=== PATIENT | female | born 1965 | race African-American/Black ===

== ENCOUNTER 2019-06-12 14:34 | Inpatient (IN) | payer SELFPAY ==
[2019-06-12] MEDS ORDERED: NA CHLORIDE 0.9% 1,000 ML ONE (15:57)
--- NOTE | 2019-06-12 16:03 | RAD REPORT ---
EXAM DESCRIPTION: RAD - Chest Single View - 06/12/2019 3:58 pm CLINICAL HISTORY: syncope Chest pain. COMPARISON: No comparisons FINDINGS: Portable technique limits examination quality. The lungs are grossly clear. The heart is normal in size. No displaced fractures. IMPRESSION: No acute intrathoracic process suspected.
--- NOTE | 2019-06-12 16:04 | RAD REPORT ---
EXAM DESCRIPTION: CR - Finger-Thumb Left - 06/12/2019 3:59 pm CLINICAL HISTORY: PAIN COMPARISON: No comparisons FINDINGS: No acute fracture identified
[2019-06-12 16:18] LABS: Basophils % 0.4 % (0-1.3); Hematocrit 39.4 % (36.0-45.0); Lymphocytes % 18.1 % (15.3-44.8); MPV 8.6 fL (7.6-11.3); Protime INR 1.04; RBC Red Blood Cell Count 4.55 M/uL (3.86-4.86)
[2019-06-12] MEDS ORDERED: METOCLOPRAMIDE 10 MG/2mL INJ ONE (16:22)
[2019-06-12] MEDS ORDERED: MORPHINE 2 MG/ML SYR ONE (16:23)
--- NOTE | 2019-06-12 16:30 | RAD REPORT ---
EXAM DESCRIPTION: CT - Head Brain Wo Cont - 06/12/2019 4:17 pm CLINICAL HISTORY: SYNCOPE Headache, syncope, head trauma COMPARISON: No comparisons TECHNIQUE: All CT scans are performed using dose optimization technique as appropriate and may inclu de automated exposure control or mA/KV adjustment according to patient size. FINDINGS: No intracranial hemorrhage, hydrocephalus or extra-axial fluid collection.No areas of brai n edema or evidence of midline shift. The paranasal sinuses and mastoids are clear. The calvarium is intact. IMPRESSION: No acute intracranial abnormality.
[2019-06-12 16:43] LABS: ALT/SGPT 13 U/L (12-78); AST/SGOT 14 U/L (15-37); Alkaline Phosphatase 112 U/L (45-117); BUN Blood Urea Nitrogen 13 mg/dL (7-18); Bicarbonate 29 mmol/L (21-32); Bilirubin Direct < 0.1 mg/dL (0-0.2); Bilirubin Total 0.4 mg/dL (0.2-1.0); Glucose Level 88 mg/dL (74-106); Magnesium 2.6 mg/dL (1.8-2.4); NT PRO-BNP 63 pg/mL (<125); Potassium 3.3 mmol/L (3.5-5.1); Protein, Total 8.8 g/dL (6.4-8.2); Sodium Level 143 mmol/L (136-145); Troponin (Emerg Dept Use Only) < 0.02 ng/mL (0.0-0.045)
[2019-06-12] MEDS ORDERED: POTASSIUM 25 MEQ EFFERV TAB ONE (17:01)
--- NOTE | 2019-06-12 17:19 | ER ---
Nurse's Notes [facility] Name: Gisselle Fuentes Age: 53 yrs Sex: Female : 1965 Arrival Date: 06/12/2019 Time: 14:42 Bed 17 Private MD: Diagnosis: Syncope and collapse Presentation: 06/11 14:43 Chief complaint: EMS states: called out for syncope, was pulling weeds and em [id number] found her on the floor, unknown downtime, woke up with a left sided headache, unknown if she hit her head, also reports left sided thumb pain, has hx of migraines. Coronavirus screen: The patient has NOT traveled to a country currently being monitored by the [facility] within the last 14 days. The patient has NOT had contact with any known and/or suspected case of coronavirus. Ebola Screen: Patient negative for fever greater than or equal to 101.5 degrees Fahrenheit, and additional compatible Ebola Virus Disease symptoms Patient denies exposure to infectious person. Patient denies travel to an Ebola-affected area in the 21 days before illness onset. No symptoms or risks identified at this time. Initial Sepsis Screen: Does the patient meet any 2 criteria? No. Patient's initial sepsis screen is negative. Does the patient have a suspected source of infection? No. Patient's initial sepsis screen is negative. Risk Assessment: Do you want to hurt yourself or someone else? Patient reports no desire to harm self or others. 14:43 Method Of Arrival: EMS: [facility] em 14:43 Acuity: EARNESTINE 3 em 19:20 Onset of symptoms was June 12, 2019. 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 - Social history:: Smoking status: Patient denies any tobacco usage or history of. Screenin:00 Abuse screen: Denies threats or abuse. Nutritional screening: No deficits noted. em Tuberculosis screening: No symptoms or risk factors identified. Fall Risk None identified. Assessment: 14:43 General: Appears in no apparent distress. 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 Pain: Complains of pain in left protestant Pain currently is 10 out of 10 on a pain scale. Pain began 30 min ago. Neuro: Level of Consciousness is awake, alert, obeys commands, Oriented to person, place, time, situation, Appropriate for age Reports headache a syncopal episode Denies blurred vision dizziness, numbness. Cardiovascular: Capillary refill < 3 seconds Rhythm is sinus rhythm. Respiratory: Airway is patent Respiratory effort is even, unlabored, Respiratory pattern is regular, symmetrical. GI: Patient currently denies nausea, vomiting. Derm: Skin is intact, is healthy with good turgor, Skin is pink, warm \T\ dry. Musculoskeletal: Capillary refill < 3 seconds, Range of motion: intact in all extremities, Reports pain in dorsal aspect of proximal phalanx of left thumb. 16:01 Reassessment: Patient appears in no apparent distress at this time. Patient and/or em family updated on plan of care and expected duration. Pain level reassessed. Patient is alert, oriented x 3, equal unlabored respirations, skin warm/dry/pink. 17:01 Reassessment: Patient appears in no apparent distress at this time. Patient and/or em family updated on plan of care and expected duration. Pain level reassessed. Patient is alert, oriented x 3, equal unlabored respirations, skin warm/dry/pink. rates pain 8/10 Patient states feeling better. Patient states symptoms have improved. 17:33 Reassessment: Patient appears in no apparent distress at this time. hospitalist at em bedside. 18:04 Reassessment: Patient appears in no apparent distress at this time. Patient and/or em family updated on plan of care and expected duration. Pain level reassessed. Patient is alert, oriented x 3, equal unlabored respirations, skin warm/dry/pink. pending room assignment. 19:10 Reassessment: Patient appears in no apparent distress at this time. Patient and/or wh family updated on plan of care and expected duration. Pain level reassessed. Patient is alert, oriented x 3, equal unlabored respirations, skin warm/dry/pink. 20:30 Reassessment: Patient appears in no apparent distress at this time. No changes from previously documented assessment. Patient and/or family updated on plan of care and expected duration. Pain level reassessed. Patient is alert, oriented x 3, equal unlabored respirations, skin warm/dry/pink. Vital Signs: 14:43 BP 132 / 83; Pulse 88; Resp 18; Temp 98.8(O); Pulse Ox 97% on R/A; Weight 72.57 kg; em Height 5 ft. 7 in. (170.18 cm); Pain 10/10; 15:55 BP 131 / 87 Supine; Pulse 83; em 15:55 BP 155 / 95 Sitting; Pulse 93; Resp 22; Pulse Ox 98% on R/A; Pain 10/10; em 17:00 BP 133 / 84; Pulse 79; Resp 18; Pulse Ox 99% on R/A; Pain 8/10; em 18:00 BP 132 / 86; Pulse 77; Resp 15; Pulse Ox 96% on R/A; em 20:00 BP 136 / 81; Pulse 69; Resp 18; Pulse Ox 97% on R/A; wh 14:43 Body Mass Index 25.06 (72.57 kg, 170.18 cm) em 15:55 unable to finish orthostatics, pt reports migraine, pt actively crying, provider em notified of pt status Hobbs Coma Score: 15:01 Eye Response: spontaneous(4). Verbal Response: oriented(5). Motor Response: obeys em commands(6). Total: 15. ED Course: 14:42 Patient arrived in ED. em 14:46 Triage completed. em 14:49 Arm band placed on. em 14:50 Waqar Gaxiola, RN is Primary Nurse. em 15:00 Patient has correct armband on for positive identification. Bed in low position. Call em light in reach. Adult w/ patient. Pulse ox on. NIBP on. 15:06 Roland Thorpe PA is PHCP. cp 15:06 Roland Corey MD is Attending Physician. cp 15:59 XRAY Chest (1 view) In Process Unspecified. EDMS 15:59 XRAY Finger-Thumb Left In Process Unspecified. EDMS 16:16 CT Head Brain wo Cont In Process Unspecified. EDMS 17:17 Case Damico is Hospitalizing Provider. cp 17:21 Velcro wrist splint applied to left wrist. em 20:30 No provider procedures requiring assistance completed. Patient admitted, IV remains in place. 06/12 05:22 Primary Nurse role handed off by Waqar Gaxiola RN ar5 07:05 Gigi Marvin, EM is Primary Nurse. jl7 Administered Medications: 06/11 16:00 Drug: NS 0.9% 1000 ml Route: IV; Rate: 1 bolus; Site: right antecubital; em 20:45 Follow up: Response: No adverse reaction; IV Status: Completed infusion 16:01 CANCELLED (Physician Discretion): Tylenol 1000 mg PO once cp 16:30 Drug: Reglan 10 mg Route: IVP; Site: right antecubital; em 17:02 Follow up: Response: No adverse reaction em 16:32 Drug: morphine 2 mg Route: IVP; Site: right antecubital; em 17:02 Follow up: Response: No adverse reaction; Marked relief of symptoms; Pain is decreased em 17:02 Drug: Potassium Effervescent Tablet 25 mEq Route: PO; em 17:31 Follow up: Response: No adverse reaction em Point of Care Testing: Blood Glucose: 14:49 Blood Glucose: 83 mg/dL; em Ranges: Outcome: 17:18 Decision to Hospitalize by Provider. cp 20:30 Admitted to ER Hold. Please see [facility] for further documentation. 20:30 Condition: stable 20:30 Instructed on the need for admit. 06/12 08:26 Patient left the ED. jl7 Signatures: Dispatcher [employer] EDMS Waqar Gaxiola, RN RN Roland Thorpe PA PA Gigi Marvin RN RN jl Raghu Correa Henny Brown
--- NOTE | 2019-06-12 17:19 | EDPHYS ---
Physician Documentation [facility] Name: Gisselle Fuentes Age: 53 yrs Sex: Female : 1965 Arrival Date: 06/12/2019 Time: 14:42 Bed 17 Private MD: ED Physician Roland Corey HPI: 06/11 15:29 This 53 yrs old Unknown Female presents to ER via EMS with complaints of Syncope. cp 15:29 The patient has experienced syncope, collapsed, lost consciousness. Onset: The cp symptoms/episode began/occurred today. Duration: This was a single episode, that lasted an unknown period of time. Context: the episode(s) was witnessed, by family, occurred outdoors, occurred while the patient was standing, talking. Just prior to the episode the patient experienced no apparent symptoms. Associated signs and symptoms: Pertinent negatives: abdominal pain, chest pain, confusion, numbness, palpitations, vomiting, weakness. Current symptoms: headache, a " 10" on a scale of "10". 15:30 Associated injury: Head/face: chin, tenderness, Left upper extremity: left thumb, pain, cp tenderness. 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 - Social history:: Smoking status: Patient denies any tobacco usage or history of. ROS: 15:35 Constitutional: Negative for body aches, chills, fever, poor PO intake. cp 15:35 Eyes: Negative for injury, pain, redness, and discharge. cp 15:35 Neck: Negative for pain with movement, pain at rest, stiffness, tenderness, bony tenderness. 15:35 Cardiovascular: Negative for chest pain, edema, palpitations. 15:35 Respiratory: Negative for cough, shortness of breath, wheezing. 15:35 Abdomen/GI: Negative for abdominal pain, nausea, vomiting, and diarrhea, constipation, black/tarry stool, rectal bleeding. 15:35 Back: Negative for pain at rest, pain with movement. 15:35 MS/extremity: Positive for pain, tenderness, of the chin and left thumb, Negative for deformity. 15:35 Neuro: Positive for headache, syncope, Negative for altered mental status, dizziness, speech changes, weakness. 15:35 All other systems are negative. Exam: 15:36 ECG was reviewed by the Attending Physician. cp 15:40 Constitutional: The patient appears in no acute distress, alert, awake, cp non-diaphoretic, non-toxic, well developed, well nourished. 15:40 Head/face: Noted is tenderness, that is mild, of the chin. cp 15:40 Eyes: Periorbital structures: appear normal, Pupils: equal, round, and reactive to light and accomodation, Extraocular movements: intact throughout, Conjunctiva: normal, no exudate, no injection, Sclera: no appreciated abnormality, Lids and lashes: appear normal, bilaterally. 15:40 ENT: External ear(s): are unremarkable, Ear canal(s): are normal, clear, TM's: dullness, bilaterally, Nose: is normal, Mouth: Lips: moist, Oral mucosa: pink and intact, moist, Posterior pharynx: is normal, airway is patent, no erythema, no exudate. 15:40 Neck: C-spine: vertebral tenderness, is not appreciated, crepitus, is not appreciated, ROM/movement: is normal, is supple, without pain, no range of motions limitations. 15:40 Chest/axilla: Inspection: normal, Palpation: is normal, no crepitus, no tenderness. 15:40 Cardiovascular: Rate: normal, Rhythm: regular, Heart sounds: murmur, not appreciated, Edema: is not appreciated, JVD: is not appreciated. 15:40 Respiratory: the patient does not display signs of respiratory distress, Respirations: normal, no use of accessory muscles, no retractions, labored breathing, is not present, Breath sounds: are clear throughout, no decreased breath sounds. 15:40 Abdomen/GI: Inspection: abdomen appears normal, Bowel sounds: active, all quadrants, Palpation: abdomen is soft and non-tender, in all quadrants, voluntary guarding, is not appreciated, involuntary guarding, is not appreciated. 15:40 Back: pain, is absent, ROM is normal. 15:40 Musculoskeletal/extremity: Extremities: grossly normal except: noted in the left thumb: pain, tenderness, ROM: limited active range of motion due to pain, in the left thumb, Perfusion: the extremity is normally perfused throughout, Sensation intact. 15:40 Neuro: Orientation: to person, place \\T\\ time. Mentation: is normal, Cerebellar function: Romberg testing is negative, normal finger to nose testing, heel to henry testing is normal, Motor: moves all fours, strength is normal, Sensation: no obvious gross deficits. Vital Signs: 14:43 BP 132 / 83; Pulse 88; Resp 18; Temp 98.8(O); Pulse Ox 97% on R/A; Weight 72.57 kg; em Height 5 ft. 7 in. (170.18 cm); Pain 10/10; 15:55 BP 131 / 87 Supine; Pulse 83; em 15:55 BP 155 / 95 Sitting; Pulse 93; Resp 22; Pulse Ox 98% on R/A; Pain 10/10; em 17:00 BP 133 / 84; Pulse 79; Resp 18; Pulse Ox 99% on R/A; Pain 8/10; em 18:00 BP 132 / 86; Pulse 77; Resp 15; Pulse Ox 96% on R/A; em 20:00 BP 136 / 81; Pulse 69; Resp 18; Pulse Ox 97% on R/A; wh 14:43 Body Mass Index 25.06 (72.57 kg, 170.18 cm) em 15:55 unable to finish orthostatics, pt reports migraine, pt actively crying, provider em notified of pt status Ely Coma Score: 15:01 Eye Response: spontaneous(4). Verbal Response: oriented(5). Motor Response: obeys em commands(6). Total: 15. MDM: 15:07 Patient medically screened. cp 15:45 Differential Diagnosis: cardiac arrhythmia, emotional response, GI bleed, pseudo cp seizure, seizure, transient ischemic attack, vasovagal episode. 17:00 Data reviewed: vital signs, nurses notes, lab test result(s), EKG, radiologic studies, cp CT scan, plain films, and as a result, I will admit patient. 17:00 Test interpretation: by ED physician or midlevel provider: ECG. Counseling: I had a cp detailed discussion with the patient and/or guardian regarding: the historical points, exam findings, and any diagnostic results supporting the discharge/admit diagnosis, lab results, radiology results, the need for further work-up and treatment in the hospital. Response to treatment: the patient's symptoms have markedly improved after treatment. 17:05 Physician consultation: Case Damico was called at 17:05, was contacted at 17:05, cp regarding admission, to the telemetry unit. patient's condition. 06/11 14:54 Order name: Glucose, Ancillary Testing; Complete Time: 16:34 EDMS 06/11 15:28 Order name: Basic Metabolic Panel; Complete Time: 16:49 cp 06/11 16:49 Interpretation: Normal except: K 3.3; CRE 1.59; GFR 34. cp 06/11 15:28 Order name: CBC with Diff; Complete Time: 16:34 cp 06/11 16:34 Interpretation: Normal except: ROLAND% 76.6; NEUT A 8.3. cp 06/11 15:28 Order name: LFT's; Complete Time: 16:49 cp 06/11 16:49 Interpretation: Normal except: AST 14; TP 8.8; GLOB 4.8; A/G 0.8. cp 06/11 15:28 Order name: Magnesium; Complete Time: 16:49 cp 06/11 16:50 Interpretation: Abnormal: MG 2.6. cp 06/11 15:28 Order name: NT PRO-BNP; Complete Time: 16:49 cp 06/11 15:28 Order name: PT-INR; Complete Time: 16:34 cp 06/11 15:28 Order name: Troponin (emerg Dept Use Only); Complete Time: 16:49 cp 06/11 16:14 Order name: Urine Dipstick--Ancillary (enter results); Complete Time: 20:22 ss 06/11 20:23 Interpretation: Normal except: UBLD TRACE. cp 06/11 21:19 Order name: Troponin I EDMS 06/11 21:19 Order name: Magnesium EDMS 06/12 02:04 Order name: Troponin I EDMS 06/12 05:43 Order name: Basic Metabolic Panel EDMS 06/12 05:43 Order name: Phosphorus EDMS 06/11 15:06 Order name: Orthostatics; Complete Time: 16:09 cp 06/11 15:07 Order name: EKG; Complete Time: 15:08 cp 06/11 15:07 Order name: EKG - Nurse/Tech; Complete Time: 16:09 cp 06/11 15:28 Order name: XRAY Chest (1 view); Complete Time: 16:34 cp 06/11 16:34 Interpretation: Report review. cp 06/11 15:28 Order name: Cardiac monitoring; Complete Time: 16:10 cp 06/11 15:28 Order name: IV Saline Lock; Complete Time: 16:10 cp 06/11 15:28 Order name: CT Head Brain wo Cont; Complete Time: 16:34 cp 06/11 16:34 Interpretation: Report reviewed. 06/11 15:31 Order name: XRAY Finger-Thumb Left; Complete Time: 16:34 cp 06/12 05:43 Order name: Lipid Profile EDPR 06/12 05:43 Order name: Thyroid Stimulating Hormone EDPR 06/12 08:07 Order name: Hemoglobin A1c EDPR 06/11 15:28 Order name: Labs collected and sent; Complete Time: 16:10 cp 06/11 15:28 Order name: O2 Per Protocol; Complete Time: 16:09 cp 06/11 15:28 Order name: O2 Sat Monitoring; Complete Time: 16:09 cp 06/11 15:29 Order name: Urine Dipstick-Ancillary (obtain specimen); Complete Time: 16:09 cp 06/11 16:52 Order name: Thumb Spica Splint: left; Complete Time: 17:27 cp EC:36 Rate is 73 beats/min. Rhythm is regular. AK interval is normal. QRS interval is normal. cp QT interval is normal. T waves are Flattened in lead aVL. Interpreted by me. Reviewed by me. Administered Medications: 16:00 Drug: NS 0.9% 1000 ml Route: IV; Rate: 1 bolus; Site: right antecubital; em 20:45 Follow up: Response: No adverse reaction; IV Status: Completed infusion wh 16:01 CANCELLED (Physician Discretion): Tylenol 1000 mg PO once cp 16:30 Drug: Reglan 10 mg Route: IVP; Site: right antecubital; em 17:02 Follow up: Response: No adverse reaction em 16:32 Drug: morphine 2 mg Route: IVP; Site: right antecubital; em 17:02 Follow up: Response: No adverse reaction; Marked relief of symptoms; Pain is decreased em 17:02 Drug: Potassium Effervescent Tablet 25 mEq Route: PO; em 17:31 Follow up: Response: No adverse reaction em Point of Care Testing: Blood Glucose: 14:49 Blood Glucose: 83 mg/dL; em Ranges: Critical Glucose Levels:Adult <50 mg/dl or >400 mg/dl <40 mg/dl or >180 mg/dl Disposition: 17:30 Chart complete. cp 06/12 16:24 Co-signature as Attending Physician, Roland Corey MD I agree with the assessment and jonathan plan of care. Disposition: 06/12/19 17:18 Hospitalization ordered by Case Damico for Observation. Preliminary diagnosis is Syncope and collapse. - Bed requested for Telemetry/MedSurg (observation). - Status is Observation. jl7 - Condition is Stable. - Problem is new. - Symptoms have improved. Signatures: Dispatcher [employer] EDIoana Abreu RN Roland Spangler MD MD cha Munoz, Edgar RN RN Roland Stokes PA PA cp Leal, Jahala, RN RN jl7 Habalo, Winsy Corrections: (The following items were deleted from the chart) 06/11 16:01 16:00 Tylenol 1000 mg PO once ordered. cp 16:08 15:29 Urine Test ordered. em 19:52 17:18 Hospitalization Ordered by Case Damico for Observation. Preliminary diagnosis mw is Syncope and collapse. Bed requested for Telemetry/MedSurg (observation). Status is Observation. Condition is Stable. Problem is new. Symptoms have improved. cp 06/12 05:54 06/11 19:52 06/12/2019 17:18 Hospitalization Ordered by Case Damico for Observation. Preliminary diagnosis is Syncope and collapse. Bed requested for [facility] ER HOLD. Status is Observation. Condition is Stable. Problem is new. Symptoms have improved. mw 06/12 08:26 05:54 06/12/2019 17:18 Hospitalization Ordered by Case Damico for Observation. jl7 Preliminary diagnosis is Syncope and collapse. Bed requested for Telemetry/MedSurg (observation). Status is Observation. Condition is Stable. Problem is new. Symptoms have improved. mw
--- NOTE | 2019-06-12 17:57 | P.HP ---
Certification for Inpatient Patient admitted to: Observation With expected LOS: <2 Midnights Practitioner: I am a practitioner with admitting privileges, knowledge of patient current condition, hospital course, and medical plan of care. Services: Services provided to patient in accordance with Admission requirements found in Title 42 Section 412.3 of the Code of Federal Regulations Patient History Date of Service: 06/12/19 Reason for admission: Syncope History of Present Illness: 53-year-old with no known past medical history was brought to the emergency department because she passed out and fell face forward. Patient states no seizures witnessed. She denied any warning signs or palpitation or dizziness or lightheadedness prior to passing out. She was doing yard work with her [id number] before the syncopal episode. She experienced pain in the left hand and her lower lip was swollen, had a small cut in her lower lip mucosa from the fall. Head CT is negative for acute disease. Blood work unremarkable except elevated creatinine. EKG shows sinus rhythm, no ST-T changes. Chest x-ray shows no acute disease. X-ray of the left hand shows no fracture. Initial troponin is negative. Her blood pressure has been normal in the ED. Patient is placed under observation for further syncope work up. Home medications list reviewed: Yes (No home medication) - Past Medical/Surgical History -: None - Family History Mother -: Diabetes, Seizures - Social History Smoking Status: Never smoker Alcohol use: No CD- Drugs: No Place of Residence: Home Review of Systems Other: Except as documented, all other systems reviewed and negative. Physical Examination - Physical Exam General: Alert, In no apparent distress, Oriented x3 HEENT: Mucous membr. moist/pink, Sclerae nonicteric Neck: Supple, 2+ carotid pulse no bruit, JVD not distended Respiratory: Clear to auscultation bilaterally, Normal air movement Cardiovascular: No edema, Normal pulses, Regular rate/rhythm, Normal S1 S2, No murmurs Capillary refill: <2 Seconds Gastrointestinal: Normal bowel sounds, Soft and benign, Non-distended, No tenderness Musculoskeletal: No swelling, No erythema Integumentary: No rashes, No erythema Neurological: Normal speech, Normal strength at 5/5 x4 extr, Cranial nerves 3- 12 intact - Studies Laboratory Data (last 24 hrs) 06/12/19 16:00: PT 12.3, INR 1.04 06/12/19 16:00: WBC 10.8, Hgb 12.9, Hct 39.4, Plt Count 319 06/12/19 16:00: Sodium 143, Potassium 3.3 L, BUN 13, Creatinine 1.59 H, Glucose 88, Magnesium 2.6 H, Total Bilirubin 0.4, AST 14 L, ALT 13, Alkaline Phosphatase 112 Assessment and Plan - Problems (Diagnosis) (1) Syncope and collapse Current Visit: Yes Status: Acute (2) Acute renal failure Current Visit: Yes Status: Acute (3) Hypokalemia Current Visit: Yes Status: Acute - Plan Place under observation Continue to trend troponin Syncope workup with echocardiogram. monitoring and evaluation advisor Check hemoglobin A1c, lipid profile. Given the significant history of seizure disorder in the family, I would recommend EEG to rule out seizures. Ativan IV p.r.n. will be available for seizures if it occurs. Pain management as needed for left thumb sprain. - Advance Directives Does patient have a Living Will: No Does patient have a Durable POA for Healthcare: No
[2019-06-12 20:01] LABS: Urine Blood TRACE (NEG); Urine Glucose NEGATIVE (NEG); Urine Protein TRACE (NEG); Urine Specific Gravity 1.025 (1.005-1.030); Urine pH 5.5 (5.0-7.0)
[2019-06-12 20:26] VITALS: BMI 25.0
[2019-06-12] MEDS ORDERED: NA CHLORIDE 0.9% 1,000 ML IV SCH (20:30)
[2019-06-12] MEDS ORDERED: ACETAMINOPHEN 500 MG TAB PO PRN (20:30)
[2019-06-12] MEDS ORDERED: LORazepam 2 MG/ML VIAL IV PRN (20:30)
[2019-06-12] MEDS ORDERED: ONDANSETRON 4 MG/2 ML VIAL IV PRN (20:30)
[2019-06-12 21:19] LABS: Magnesium 2.4 mg/dL (1.8-2.4); Troponin I < 0.02 ng/mL (0.0-0.045)
[2019-06-12] MEDS: Ringers Lactate 1,000 ML IV SCH (22:00)
--- NOTE | 2019-06-12 22:59 | EKG ---
Test Date: 2019-06-12 Test Time: 15:30:16 Supervisor [place]: ANA MEASUREMENT RESULTS: Intervals: Rate: 73 WV: 190 QRSD: 82 QT: 374 QTc: 412 [place]: P: 66 WV: 190 QRS: 33 T: 63 INTERPRETIVE STATEMENTS: Normal sinus rhythm Normal ECG No previous ECG available for comparison Electronically Signed On 06-12-19 22:58:33 CDT by Codey Davalos
[2019-06-13] MEDS ORDERED: Ringers Lactate 1,000 ML IV ONE (00:40)
[2019-06-13] MEDS: MORPHINE 2 MG/ML SYR IV PRN ×2 (04:45→20:57)
[2019-06-13] MEDS ORDERED: MORPHINE 2 MG/ML SYR ONE (04:47)
[2019-06-13 05:38] LABS: Phosphorus 4.3 mg/dL (2.5-4.9); Potassium 3.6 mmol/L (3.5-5.1); Thyroid Stimulating Hormone 0.422 uIU/mL (0.360-3.740)
[2019-06-13] MEDS ORDERED: POTASSIUM CL SA 10 MEQ TAB PO ONE (09:00)
[2019-06-13] MEDS: ENOXAPARIN 40 MG/0.4 ML SQ SCH (09:32)
[2019-06-13] MEDS: Ringers Lactate 1,000 ML IV SCH ×2 (09:33→18:00)
--- NOTE | 2019-06-13 15:49 | ECHO ---
HEIGHT: 5 ft 11 in WEIGHT: 216 lb 0 oz DATE OF STUDY: 06/13/[address]: kalyn arora 2-DIMENSIONAL: YES M.MODE: YES DOPPLER: YES COLOR FLOW: YES TDS: NO PORTABLE: NO DEFINITY: NO BUBBLE STUDY: NO DIAGNOSIS: SYNCOPE AND COLLAPSE CARDIAC HISTORY: CATHERIZATION: NO SURGERY: NO PROSTHETIC VALVE: NO PACEMAKER: NO MEASUREMENTS (cm) DIASTOLIC (NORMALS) SYSTOLIC (NORMALS) IVSd 1.0 (0.6-1.2) LA Diam 2.7 (1.9-4.0) LVEF 61% LVIDd 4.6 (3.5-5.7) LVIDs 3.1 (2.0-3.5) %FS 32% LVPWd 1.1 (0.6-1.2) Ao Diam 2.5 (2.0-3.7) 2 DIMENSIONAL ASSESSMENT: RIGHT ATRIUM: NORMAL LEFT ATRIUM: NORMAL RIGHT VENTRICLE: NORMAL LEFT VENTRICLE: NORMAL TRICUSPID VALVE: NORMAL MITRAL VALVE: NORMAL PULMONIC VALVE: NORMAL AORTIC VALVE: NORMAL PERICARDIAL EFFUSION: NONE AORTIC ROOT: NORMAL LEFT VENTRICULAR WALL MOTION: NORMAL DOPPLER/COLOR FLOW: NORMAL COMMENTS: NORMAL 2D ECHOCARDIOGRAM WITH DOPPLER. TECHNOLOGIST: Rashmi PAIZ
[2019-06-14] MEDS: Ringers Lactate 1,000 ML IV SCH ×3 (02:00→16:37)
[2019-06-14 06:47] LABS: Potassium 4.2 mmol/L (3.5-5.1)
[2019-06-14] MEDS: ENOXAPARIN 40 MG/0.4 ML SQ SCH (08:58)
[2019-06-14 10:59] VITALS: O2SAT 95
[2019-06-14] MEDS ORDERED: SUMATRIPTAN SUCCI 50 MG TAB PO PRN (14:08)
[2019-06-14 16:44] VITALS: BP 134/70; TEMP 97.5
--- NOTE | 2019-06-14 17:28 | RAD REPORT ---
EXAM DESCRIPTION: - CP - 06/14/2019 5:21 pm CLINICAL HISTORY: syncope Headache, drowsiness, CVA symptomology COMPARISON: No comparisons TECHNIQUE: Real-time sonographic evaluation of both carotid systems was performed. Doppler interroga tion was performed with waveform tracing bilaterally. FINDINGS: Normal high resistance waveforms are noted in both external carotid arteries. The common c arotid arteries and internal carotid arteries show normal low resistance waveforms. Small mixed plaque is noted left carotid bulb. Peak systolic and end diastolic velocity values and th e ICA/CCA ratios are in the non-hemodynamically significant range. Antegrade flow seen in both vertebral arteries. IMPRESSION: Small mixed plaque left carotid bulb. No evidence of a hemodynamically significant stenosis.
--- NOTE | 2019-06-14 20:01 | DS ---
Date of Discharge: 06/14/2019 Discharge Diagnoses: 1.Syncope and collapse. 2.Acute kidney injury. 3.Hypokalemia. 4.Obesity, body mass index 30. 5.Left thumb sprain from the fall. Hospital Course: Patient is a 53-year-old female, comes in with a witnessed fall. There were no sei zures. Patient had no warning to her syncopal episode. Patient came to shortly after. There was no postictal state. Seizure was very unlikely. Her workup was essentially normal. She did have sligh tly elevated creatinine and hypokalemia, which may be from dehydration as she was out and working in the garden in the heat. Patient's orthostatic vital signs were negative. Carotid artery ultrasound was also ordered. Overall, patient did well. She was able to ambulate, did not have any further syn copal episodes. There was no abnormality seen on her telemetry. Patient did not have a UTI. Her po tassium was replaced. Patient's etiology is likely cardiogenic, doubt any neurogenic causes. Her he ad CT scan was negative. Patient's thumb x-ray was also negative. She likely has a sprain. If she has continued pain, I would recommend an MRI and hand surgeon to evaluate the patient; however, for n ow, we will continue with conservative measures with rest, ice, and elevation. Patient was then doin g well. She was able to ambulate without difficulty. She will need to follow up with her primary ca re physician in 2-3 days and to follow up with Cardiology in 1-2 weeks for event monitor study to rul e out any sort of arrhythmias. Return to ER for worsening condition. Medications: As per medication reconciliation list. Diet: Regular, calorie-reduced diet. Patient was counseled regarding her obesity. Diet and exercis e regimen needs to be changed. Physical Examination: General: Awake, alert, oriented x3, not in any acute distress, obese female. CV: S1, S2. Regular rate and rhythm. Peripheral pulses present. Respiratory: Moving air well bilaterally. No wheezing or stridor. Gastrointestinal: Abdomen is soft, nontender, nondistended. Positive bowel sounds. Extremities: No clubbing, cyanosis, or edema. Neuro: Nonfocal. Total time spent discharging patient was 32 minutes. SA/MODL Voice ID: [id number] Report ID: [id number]
--- NOTE | 2019-06-26 07:55 | EEG ---
CHART: [id number] TEST ID#: [id number] DATE OF STUDY: 06/13/2019 THE EEG WAS RECORDED PORTABLE IN THE PATIENTS ROOM ON A 17 CHANNEL MACHINE. ELECTRODES WERE APPLIED IN THE USUAL MANNER USING THE INTERNATIONAL 10-20 SYSTEM. THE WAKING BACKGROUND RHYTHM IN THIS RECORD CONSISTS OF VERY WELL DEVELOPED AND WELL ORGANIZED WAVES OF 10.5 HZ., MAXIMAL IN THE POSTERIOR HEAD REGIONS WHICH ATTENUATE NORMALLY WITH EYE OPENING. LOW-VOLTAGE 18-22 HZ ACTIVITY IS EXPRESSED IN THE FRONTAL REGIONS. THERE ARE NO FOCAL OR LATERALIZING FEATURES. NO EPILEPTIFORM ACTIVITY APPEARS. SLEEP DID NOT OCCUR. HYPERVENTILATION WAS NOT PERFORMED. PHOTIC STIMULATION PRODUCED FAIR DRIVING BILATERALLY. IMPRESSION: NORMAL EEG FOR THE AGE OF THE PATIENT IN [place].
== END 2019-06-14 18:31 | disposition home or self-care (01) | DRG 312 ==
LOC: EDBD 14:34 → ER 14:34 → ERHOLD 18:03 → 2ND 06-13 08:18 → OBSVTOIN 06-13 14:46
PROVIDERS: ADMIT Internal Medicine; ATTEND Internal Medicine
DX: R55 Syncope and collapse (principal); N17.9 Acute kidney failure, unspecified; E87.6 Hypokalemia; E66.9 Obesity, unspecified; Z68.30 Body mass index [BMI] 30.0-30.9, adult; S63.602A Unspecified sprain of left thumb, initial encounter; W18.30XA Fall on same level, unspecified, initial encounter; Y92.009 Unspecified place in unspecified non-institutional (private) residence as the place of occurrence of the external cause
CPT/HCPCS: 36415; 70450; 71045; 80048; 80061; 80076; 81003; 82947; 83036; 83735; 83880; 84100; 84443; 84484; 85025; 85610; 93005; 93306; 93880; 94760; 95816; 96361; 96374; 96375; 99285; G0378; J1650; J2270; J2765; J7030; J7120

== ENCOUNTER 2019-06-18 17:36 | Emergency (ER) | payer SELFPAY ==
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
--- OUTSIDE RECORDS SUMMARY | 2019-06-18 17:38 | XMS REPORT ---
:1965 [facility] Address [address] [place] [address] Dr. Peoples. [address] [place] [id number] Care Team Providers Name Role Phone Unavailable Unavailable Unavailable Problems This patient has no known problems. Allergies, Adverse Reactions, Alerts This patient has no known allergies or adverse reactions. Medications This patient has no known medications.
--- NOTE | 2019-06-18 19:28 | RAD REPORT ---
EXAM DESCRIPTION: CT - Head Brain Wo Cont - 06/18/2019 7:15 pm CLINICAL HISTORY: HEADACHE COMPARISON: Head Brain Wo Cont dated 06/12/2019 TECHNIQUE: Axial 5 mm thick images of the head were obtained without IV contrast. All CT scans are performed using dose optimization technique as appropriate and may include automated exposure control or mA/KV adjustment according to patient size. FINDINGS: No intracranial hemorrhage, mass, edema or shift of mid-line structures. No acute infarcti on changes seen. No abnormal extra-axial fluid collections. Ventricles are normal. Mastoid air cells and visualized portions of the paranasal sinuses are clear. No acute bony findings. No changes seen from prior imaging. IMPRESSION: Negative non-contrast CT head examination.
[2019-06-18] MEDS ORDERED: ONDANSETRON 4 MG/2 ML VIAL ONE (19:32)
[2019-06-18] MEDS ORDERED: METOCLOPRAMIDE 10 MG/2mL INJ ONE (19:32)
[2019-06-18] MEDS ORDERED: NA CHLORIDE 0.9% 1,000 ML ONE (19:32)
[2019-06-18] MEDS ORDERED: KETOROLAC 30 MG/ML INJ ONE (19:32)
[2019-06-18 20:48] LABS: Urine Blood NEGATIVE (NEG); Urine Glucose NEGATIVE (NEG); Urine Protein NEGATIVE (NEG); Urine Specific Gravity 1.025 (1.005-1.030)
--- NOTE | 2019-06-18 21:07 | ER ---
Nurse's Notes [facility] Name: Gisselle Fuentes Age: 53 yrs Sex: Female : 1965 Arrival Date: 06/18/2019 Time: 17:41 Bed 23 Private MD: Diagnosis: Migraine without aura Presentation: 06/17 17:51 Chief complaint: Patient states: Headache x 5 days. Nausea started today. Was here ca1 Tuesday and admitted for syncope. I have been having this headache since I was discharged. Denies cough, congestion and fever. Coronavirus screen: Patient denies fever greater than 100.4F, cough, shortness of breath, or difficulty breathing. Proceed with normal triage process. Ebola Screen: Patient negative for fever greater than or equal to 101.5 degrees Fahrenheit, and additional compatible Ebola Virus Disease symptoms Patient denies exposure to infectious person. Patient denies travel to an Ebola-affected area in the 21 days before illness onset. No symptoms or risks identified at this time. Initial Sepsis Screen: Does the patient meet any 2 criteria? No. Patient's initial sepsis screen is negative. Does the patient have a suspected source of infection? No. Patient's initial sepsis screen is negative. Risk Assessment: Do you want to hurt yourself or someone else? Patient reports no desire to harm self or others. 17:51 Method Of Arrival: Ambulatory ca1 17:51 Acuity: EARNESTINE 3 [facility] 19:00 Onset of symptoms was June 18, 2019. 19:00 Onset of symptoms was June 18, 2019. Triage Assessment: 19:00 Headache History: The patient has had previous headaches and this one is similar to previous episodes. General: Appears in no apparent distress. Behavior is calm, cooperative, appropriate for age. Pain: Pain currently is 9 out of 10 on a pain scale. Pain began suddenly, Also complains of no other associated symptoms. 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 - Social history:: Smoking status: Patient denies any tobacco usage or history of. Patient/guardian denies using alcohol, street drugs, The patient lives with family. - Family history:: not pertinent. Screenin:00 Abuse screen: Denies threats or abuse. Denies injuries from another. Nutritional wh screening: No deficits noted. Tuberculosis screening: No symptoms or risk factors identified. Fall Risk None identified. Assessment: 19:00 General: Appears in no apparent distress. Behavior is calm, cooperative, appropriate wh for age. General: Appears uncomfortable. Pain: Complains of pain in headache Pain does not radiate. Pain currently is 9 out of 10 on a pain scale. Quality of pain is described as throbbing. Neuro: Level of Consciousness is awake, alert, obeys commands, Oriented to person, place, time, situation, Appropriate for age Striper Machine are equal bilaterally Moves all extremities. Gait is steady, Speech is normal, Facial symmetry appears normal, Pupils are PERRLA, Intact Reports headache in entire. Cardiovascular: Heart tones S1 S2. Respiratory: Airway is patent Respiratory effort is even, unlabored, Respiratory pattern is regular, symmetrical, Breath sounds are clear bilaterally. GI: Abdomen is flat, non-distended. : No signs and/or symptoms were reported regarding the genitourinary system. EENT: No signs and/or symptoms were reported regarding the EENT system. Derm: Skin is intact, is healthy with good turgor, Skin is pink, warm \T\ dry. normal. Musculoskeletal: Circulation, motion, and sensation intact. 20:24 Reassessment: Patient appears in no apparent distress at this time. No changes from previously documented assessment. Patient and/or family updated on plan of care and expected duration. Pain level reassessed. Patient is alert, oriented x 3, equal unlabored respirations, skin warm/dry/pink. 21:40 Reassessment: Patient appears in no apparent distress at this time. No changes from previously documented assessment. Patient and/or family updated on plan of care and expected duration. Pain level reassessed. Patient is alert, oriented x 3, equal unlabored respirations, skin warm/dry/pink. Patient states feeling better. Patient states symptoms have improved. Vital Signs: 17:51 BP 128 / 79; Pulse 82; Resp 17 S; Temp 98.9(O); Pulse Ox 99% on R/A; Weight 72.57 kg ca1 (R); Height 5 ft. 7 in. (170.18 cm) (R); 20:00 BP 110 / 84; Pulse 74; Resp 18; Pulse Ox 99% on R/A; wh 21:29 BP 120 / 76; Pulse 79; Resp 18; Pulse Ox 99% ; Pain 1/10; ll1 17:51 Body Mass Index 25.06 (72.57 kg, 170.18 cm) ca1 Wade Coma Score: 20:12 Eye Response: spontaneous(4). Verbal Response: oriented(5). Motor Response: obeys ma2 commands(6). Total: 15. ED Course: 17:41 Patient arrived in ED. mr 17:54 Triage completed. ca1 17:54 Arm band placed on right wrist. ca1 18:34 Darek Garcia MD is Attending Physician. ma2 18:47 Raghu Correa is Primary Nurse. 19:00 Patient has correct armband on for positive identification. Bed in low position. Call light in reach. Side rails up X 1. Pulse ox on. NIBP on. 19:05 Inserted saline lock: 20 gauge in right antecubital area, using aseptic technique. 20:48 Urine Dipstick--Ancillary (enter results) Sent. ll1 21:34 IV discontinued, intact, bleeding controlled, No redness/swelling at site. Pressure ll1 dressing applied. 21:40 No provider procedures requiring assistance completed. Administered Medications: 19:28 Drug: TORadol 30 mg Route: IVP; Site: right antecubital; 20:18 Follow up: Response: No adverse reaction; Pain is decreased 19:30 Drug: NS 0.9% 1000 ml Route: IV; Rate: 1 bolus; Site: right antecubital; 20:18 Follow up: Response: No adverse reaction; IV Status: Completed infusion 21:28 Follow up: Response: No adverse reaction; RASS: Alert and Calm (0); IV Status: ll1 Completed infusion; IV Intake: 1000ml 19:30 Drug: Zofran (Ondansetron) 4 mg Route: IVP; Site: right antecubital; 20:18 Follow up: Response: No adverse reaction; Nausea is decreased 19:32 Drug: Reglan 10 mg Route: IVP; Site: right antecubital; 20:19 Follow up: Response: No adverse reaction Intake: 21:28 IV: 1000ml; Total: 1000ml. ll1 Outcome: 21:06 Discharge ordered by . eliezer 21:40 Discharged to home ambulatory. 21:40 Condition: stable 21:40 Discharge instructions given to patient, Instructed on discharge instructions, follow up and referral plans. medication usage, POC Demonstrated understanding of instructions, follow-up care, medications, POC Prescriptions given X 21:44 Patient left the ED. Signatures: Jennifer Truong mr Sunny, Raghu Darek Garcia MD MD ma2 Brigid Fox RN RN ca1 Arvin Sigala RN RN ll1
--- NOTE | 2019-06-18 21:08 | EDPHYS ---
Physician Documentation [facility] Name: Gisselle Fuentes Age: 53 yrs Sex: Female : 1965 Arrival Date: 06/18/2019 Time: 17:41 Bed 23 Private MD: ED Physician Darek Garcia HPI: 06/17 20:12 This 53 yrs old Black Female presents to ER via Ambulatory with complaints of Headache. ma2 20:12 The patient complains of pain to the forehead. Onset: The symptoms/episode ma2 began/occurred gradually, 1 day(s) ago. Severity of symptoms: At its worst the pain was moderate, in the emergency department the pain has improved. The patient has experienced similar episodes in the past. 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 - Social history:: Smoking status: Patient denies any tobacco usage or history of. Patient/guardian denies using alcohol, street drugs, The patient lives with family. - Family history:: not pertinent. ROS: 20:12 Constitutional: Negative for fever, chills, and weight loss. ma2 20:12 All other systems are negative. Exam: 20:12 Constitutional: This is a well developed, well nourished patient who is awake, alert, ma2 and in no acute distress. ENT: Nares patent. No nasal discharge, no septal abnormalities noted. Tympanic membranes are normal and external auditory canals are clear. Oropharynx with no redness, swelling, or masses, exudates, or evidence of obstruction, uvula midline. Mucous membranes moist. Neck: Trachea midline, no thyromegaly or masses palpated, and no cervical lymphadenopathy. Supple, full range of motion without nuchal rigidity, or vertebral point tenderness. No Meningismus. Chest/axilla: Normal chest wall appearance and motion. Nontender with no deformity. No lesions are appreciated. Cardiovascular: Regular rate and rhythm with a normal S1 and S2. No gallops, murmurs, or rubs. Normal PMI, no JVD. No pulse deficits. Respiratory: Lungs have equal breath sounds bilaterally, clear to auscultation and percussion. No rales, rhonchi or wheezes noted. No increased work of breathing, no retractions or nasal flaring. Abdomen/GI: Soft, non-tender, with normal bowel sounds. No distension or tympany. No guarding or rebound. No evidence of tenderness throughout. MS/ Extremity: Pulses equal, no cyanosis. Neurovascular intact. Full, normal range of motion. Neuro: Awake and alert, GCS 15, oriented to person, place, time, and situation. Cranial nerves II-XII grossly intact. Motor strength 5/5 in all extremities. Sensory grossly intact. Cerebellar exam normal. Normal gait. Vital Signs: 17:51 BP 128 / 79; Pulse 82; Resp 17 S; Temp 98.9(O); Pulse Ox 99% on R/A; Weight 72.57 kg ca1 (R); Height 5 ft. 7 in. (170.18 cm) (R); 20:00 BP 110 / 84; Pulse 74; Resp 18; Pulse Ox 99% on R/A; wh 21:29 BP 120 / 76; Pulse 79; Resp 18; Pulse Ox 99% ; Pain 1/10; ll1 17:51 Body Mass Index 25.06 (72.57 kg, 170.18 cm) ca1 Wade Coma Score: 20:12 Eye Response: spontaneous(4). Verbal Response: oriented(5). Motor Response: obeys ma2 commands(6). Total: 15. MDM: 18:34 Patient medically screened. ma2 20:12 Differential diagnosis: otitis, sinusitis, trigeminal neuralgia, uremia, vasomotor ma2 headache. Data reviewed: vital signs, nurses notes, lab test result(s). Counseling: I had a detailed discussion with the patient and/or guardian regarding: the historical points, exam findings, and any diagnostic results supporting the discharge/admit diagnosis, the presence of at least one elevated blood pressure reading (>120/80) during this emergency department visit, the need for outpatient follow up. Response to treatment: the patient's symptoms have markedly improved after treatment. 06/17 20:20 Order name: Urine Dipstick--Ancillary (enter results) ar5 06/17 20:49 Order name: Urine Dipstick-Ancillary; Complete Time: 20:53 EDMT 06/17 18:50 Order name: CT Head Brain wo Cont ma2 06/17 18:50 Order name: Urine Dipstick-Ancillary (obtain specimen); Complete Time: 20:18 ma2 Administered Medications: 19:28 Drug: TORadol 30 mg Route: IVP; Site: right antecubital; 20:18 Follow up: Response: No adverse reaction; Pain is decreased 19:30 Drug: NS 0.9% 1000 ml Route: IV; Rate: 1 bolus; Site: right antecubital; 20:18 Follow up: Response: No adverse reaction; IV Status: Completed infusion 21:28 Follow up: Response: No adverse reaction; RASS: Alert and Calm (0); IV Status: ll1 Completed infusion; IV Intake: 1000ml 19:30 Drug: Zofran (Ondansetron) 4 mg Route: IVP; Site: right antecubital; 20:18 Follow up: Response: No adverse reaction; Nausea is decreased 19:32 Drug: Reglan 10 mg Route: IVP; Site: right antecubital; 20:19 Follow up: Response: No adverse reaction Disposition: 06/18/19 21:06 Discharged to Home. Impression: Migraine without aura. - Condition is Stable. - Discharge Instructions: Migraine Headache. - Prescriptions for Reglan 10 mg Oral Tablet - take 1 tablet by ORAL route every 6 hours take 30 minutes before meals and at bedtime; 20 tablet. - Medication Reconciliation Form, Thank You Letter, Antibiotic Education, Prescription Opioid Use form. - Follow up: Private Physician; When: Tomorrow; Reason: Continuance of care. Signatures: Dispatcher [employer] EDMT Raghu Correa Darek Garcia MD MD ma2 Brigid Fox RN RN Arvin Knox RN ll1 Corrections: (The following items were deleted from the chart) 21:44 21:06 06/18/2019 21:06 Discharged to Home. Impression: Migraine without aura. Condition wh is Stable. Discharge Instructions: Migraine Headache. Prescriptions for Reglan 10 mg Oral Tablet - take 1 tablet by ORAL route every 6 hours take 30 minutes before meals and at bedtime; 20 tablet. and Forms are Medication Reconciliation Form, Thank You Letter, Antibiotic Education, Prescription Opioid Use. Follow up: Private Physician; When: Tomorrow; Reason: Continuance of care. ma2
[2019-06-18 21:50] VITALS: TEMP 98.9; O2SAT 99
[2019-06-18 21:51] VITALS: BP 120/76
== END 2019-06-18 21:44 | disposition home or self-care (01) ==
LOC: ER 17:36
DX: G43.009 Migraine without aura, not intractable, without status migrainosus (principal); Z88.5 Allergy status to narcotic agent; Z88.8 Allergy status to other drugs, medicaments and biological substances; Z91.018 Allergy to other foods
CPT/HCPCS: 70450; 81003; 96361; 96374; 96375; 99284; J2405; J2765; J7030

== ENCOUNTER 2019-10-13 05:03 | Emergency (ER) | payer SELFPAY ==
--- OUTSIDE RECORDS SUMMARY | 2019-10-13 05:04 | XMS REPORT | Continuity of Care Document ---
:1965 Author Organization [facility] t Address 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 Allergies, Adverse Reactions, Alerts This patient has no known allergies or adverse reactions. Medications This patient has no known medications. Procedures This patient has no known procedures. Encounters Start End Encounter Admission Attending Care Care Encounter Source Date/Time Date/Time Type Type Clinicians Facility Department ID 2019-04-12 2019-04-12 Emergency Allison [facility] [id number] 15:32:56 17:51:00 Rick Luis [id number] [place] [id number] [place] [id number] Results This patient has no known results.
[2019-10-13] MEDS ORDERED: METOCLOPRAMIDE 10 MG/2mL INJ ONE (06:24)
[2019-10-13] MEDS ORDERED: NA CHLORIDE 0.9% 1,000 ML ONE (06:25)
[2019-10-13] MEDS ORDERED: KETOROLAC 30 MG/ML INJ ONE (06:25)
--- NOTE | 2019-10-13 07:00 | EDPHYS ---
Physician Documentation [facility] Name: Gisselle Fuentes Age: 54 yrs Sex: Female : 1965 Arrival Date: 10/13/2019 Time: 05:06 Bed 6 Private MD: ED Physician Micheal Gordon HPI: 10/12 06:13 This 54 yrs old Black Female presents to ER via Ambulatory with complaints of Headache. kb 06:13 The patient complains of pain to the forehead. The patient describes the headache as kb constant. Onset: The symptoms/episode began/occurred last night. Associated signs and symptoms: Pertinent positives: nausea, Pertinent negatives: altered mental status, dizziness, fever, malaise, neck stiffness, paresthesias, Photophobia rash, sinus congestion, sinus tenderness, vision changes, vision loss, vomiting, weakness, vertigo. Severity of symptoms: At its worst the pain was moderate, in the emergency department the pain is unchanged. Headache History: The patient has had previous headaches and this one is similar to previous episodes. The symptoms are alleviated by nothing. the symptoms are aggravated by nothing. The patient has experienced similar episodes in the past, chronically. The patient has not recently seen a physician. Pt reports migraine that started at 2200 last night. Reports nausea. States she has had several migraines like this in the past and is out of her sumatriptan that she normally takes when she has one. Did not take any medication for pain prior to arrival. . 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 - Social history:: Smoking status: unknown. ROS: 06:12 Constitutional: Negative for fever, chills, and weight loss, Cardiovascular: Negative kb for chest pain, palpitations, and edema, Respiratory: Negative for shortness of breath, cough, wheezing, and pleuritic chest pain, Back: Negative for injury and pain, MS/Extremity: Negative for injury and deformity, Skin: Negative for injury, rash, and discoloration. 06:12 Abdomen/GI: Positive for nausea, Negative for abdominal pain, vomiting, diarrhea. 06:12 Neuro: Positive for headache. Exam: 06:12 Constitutional: This is a well developed, well nourished patient who is awake, alert, kb and in no acute distress. Head/Face: Normocephalic, atraumatic. Eyes: Pupils equal round and reactive to light, extra-ocular motions intact. Lids and lashes normal. Conjunctiva and sclera are non-icteric and not injected. Cornea within normal limits. Periorbital areas with no swelling, redness, or edema. Chest/axilla: Normal chest wall appearance and motion. Nontender with no deformity. No lesions are appreciated. Cardiovascular: Regular rate and rhythm with a normal S1 and S2. No gallops, murmurs, or rubs. Normal PMI, no JVD. No pulse deficits. Respiratory: Lungs have equal breath sounds bilaterally, clear to auscultation and percussion. No rales, rhonchi or wheezes noted. No increased work of breathing, no retractions or nasal flaring. Abdomen/GI: Soft, non-tender, with normal bowel sounds. No distension or tympany. No guarding or rebound. No evidence of tenderness throughout. Skin: Warm, dry with normal turgor. Normal color with no rashes, no lesions, and no evidence of cellulitis. MS/ Extremity: Pulses equal, no cyanosis. Neurovascular intact. Full, normal range of motion. Neuro: Awake and alert, GCS 15, oriented to person, place, time, and situation. Cranial nerves II-XII grossly intact. Motor strength 5/5 in all extremities. Sensory grossly intact. Cerebellar exam normal. Normal gait. Vital Signs: 05:32 BP 175 / 98; Pulse 78; Resp 18; Temp 98.4; Pulse Ox 99% ; ea 07:06 BP 161 / 90; Pulse 67; Resp 18; Pulse Ox 100% on R/A; wh Wade Coma Score: 06:13 Eye Response: spontaneous(4). Verbal Response: oriented(5). Motor Response: obeys kb commands(6). Total: 15. MDM: 05:57 Patient medically screened. kb 06:13 Data reviewed: vital signs, nurses notes. Data interpreted: Pulse oximetry: on room air kb is 99 %. Interpretation: normal. 06:59 Counseling: I had a detailed discussion with the patient and/or guardian regarding: the kb historical points, exam findings, and any diagnostic results supporting the discharge/admit diagnosis, the need for outpatient follow up, a family practitioner, to return to the emergency department if symptoms worsen or persist or if there are any questions or concerns that arise at home. ED course: Pt reports the medication helped, she is feeling better and is ready to go home. . 10/12 06:02 Order name: IV Start; Complete Time: 06:15 kb Administered Medications: 06:00 Drug: TORadol 30 mg Route: IVP; Site: right antecubital; ea 06:50 Follow up: Response: No adverse reaction ea 06:21 Drug: Reglan 10 mg Route: IVP; Site: right antecubital; ea 06:50 Follow up: Response: No adverse reaction ea 06:22 Drug: NS 0.9% 1000 ml Route: IV; Rate: 1000 ml; Site: right antecubital; ea 06:50 Follow up: Response: No adverse reaction; IV Status: Completed infusion; IV Intake: ea 1000ml Disposition: 07:17 Co-signature as Attending Physician, Micheal Gordon MD. [place] Disposition: 10/13/19 07:00 Discharged to Home. Impression: Migraine. - Condition is Stable. - Discharge Instructions: Migraine Headache, [id number]. - Medication Reconciliation Form, Thank You Letter, Antibiotic Education, Prescription Opioid Use form. - Follow up: Emergency Department; When: As needed; Reason: Worsening of condition. Follow up: Private Physician; When: 2 - 3 days; Reason: Recheck today's complaints, Continuance of care, Re-evaluation by your physician. Signatures: Ashley Ware FNP-C FNP-Jovanni Paulino RN Micheal Rush MD MD pkl Antunez, Elena, RN RN ea Corrections: (The following items were deleted from the chart) 07:07 07:00 10/13/2019 07:00 Discharged to Home. Impression: Migraine. Condition is Stable. ea Forms are Medication Reconciliation Form, Thank You Letter, Antibiotic Education, Prescription Opioid Use. Follow up: Emergency Department; When: As needed; Reason: Worsening of condition. Follow up: Private Physician; When: 2 - 3 days; Reason: Recheck today's complaints, Continuance of care, Re-evaluation by your physician. kb
--- NOTE | 2019-10-13 07:00 | ER ---
Nurse's Notes [facility] [place] Name: Gisselle Fuentes Age: 54 yrs Sex: Female : 1965 Arrival Date: 10/13/2019 Time: 05:06 Bed 6 Private MD: Diagnosis: Migraine Presentation: 10/12 05:07 Note pt remains in lobby in stable condition, awaiting a bed at this time. sg 05:07 Onset of symptoms was October 13, 2019. Care prior to arrival: None. sg 05:07 Acuity: EARNESTINE 3 sg 05:07 Chief complaint: Patient states: I have migraines, and i have medicine for them but I sg ran out, this headache has been hurting me bad, started around 10 pm last night just been getting worse. 05:34 Coronavirus screen: Proceed with normal triage. Ebola Screen: No symptoms or risks ea identified at this time. Risk Assessment: Do you want to hurt yourself or someone else? Patient reports no desire to harm self or others. 05:34 Initial Sepsis Screen: Does the patient meet any 2 criteria? No. Patient's initial ea sepsis screen is negative. Does the patient have a suspected source of infection? No. Patient's initial sepsis screen is negative. 05:34 Method Of Arrival: Ambulatory ea 05:35 Chief complaint: Patient states: Hx of Migraine headache run out of medicine. Started wh having migraine headache at 22:00 last night. Triage Assessment: 05:07 Headache History: The patient has had previous headaches and this one is similar to sg previous episodes, and this one is more severe than previous episodes. General: Appears in no apparent distress. well groomed, well developed, well nourished, Behavior is calm, cooperative, appropriate for age. Neuro: Level of Consciousness is awake, alert, obeys commands, Oriented to person, place, time, situation, Speech is normal, Facial symmetry appears normal. 05:15 Pain: Pain began suddenly, Also complains of no other associated symptoms. 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 - Social history:: Smoking status: unknown. Screenin:34 Abuse screen: Denies threats or abuse. Nutritional screening: No deficits noted. ea Tuberculosis screening: No symptoms or risk factors identified. Fall Risk None identified. Assessment: 05:36 General: Appears in no apparent distress. Behavior is calm, cooperative, appropriate wh for age. Pain: Complains of pain in migraine headache Pain does not radiate. Pain currently is 9 out of 10 on a pain scale. Neuro: Level of Consciousness is awake, alert, obeys commands, Oriented to person, place, time, situation, Appropriate for age Reports headache in entire. Cardiovascular: Heart tones S1 S2. Respiratory: Airway is patent Respiratory effort is even, unlabored, Respiratory pattern is regular, symmetrical, Breath sounds are clear bilaterally. GI: Abdomen is flat, non-distended. : No signs and/or symptoms were reported regarding the genitourinary system. EENT: No signs and/or symptoms were reported regarding the EENT system. Derm: Skin is intact, is healthy with good turgor, Skin is pink, warm \T\ dry. normal. Musculoskeletal: Circulation, motion, and sensation intact. 06:55 Reassessment: Patient and/or family updated on plan of care and expected duration. Pain ea level reassessed. Patient is alert, oriented x 3, equal unlabored respirations, skin warm/dry/pink. Discharge instruction given to patient verbalized the understanding of instruction. Pt left ED ambulatory tolerating well. Vital Signs: 05:32 BP 175 / 98; Pulse 78; Resp 18; Temp 98.4; Pulse Ox 99% ; ea 07:06 BP 161 / 90; Pulse 67; Resp 18; Pulse Ox 100% on R/A; wh Wade Coma Score: 06:13 Eye Response: spontaneous(4). Verbal Response: oriented(5). Motor Response: obeys kb commands(6). Total: 15. ED Course: 05:06 Patient arrived in ED. ag3 05:07 Arm band placed on. sg 05:13 Triage completed. sg 05:27 Raghu Correa is Primary Nurse. 05:34 Patient has correct armband on for positive identification. Bed in low position. Call ea light in reach. 05:50 Inserted saline lock: 22 gauge in right antecubital area, using aseptic technique. wh Blood collected. 05:57 Ashley Ware FNP-C is [facility]. kb 05:57 Micheal Gordon MD is Attending Physician. kb 06:50 IV discontinued, intact, bleeding controlled, No redness/swelling at site. Pressure ea dressing applied. 07:06 No provider procedures requiring assistance completed. ea Administered Medications: 06:00 Drug: TORadol 30 mg Route: IVP; Site: right antecubital; ea 06:50 Follow up: Response: No adverse reaction ea 06:21 Drug: Reglan 10 mg Route: IVP; Site: right antecubital; ea 06:50 Follow up: Response: No adverse reaction ea 06:22 Drug: NS 0.9% 1000 ml Route: IV; Rate: 1000 ml; Site: right antecubital; ea 06:50 Follow up: Response: No adverse reaction; IV Status: Completed infusion; IV Intake: ea 1000ml Intake: 06:50 IV: 1000ml; Total: 1000ml. ea Outcome: 07:00 Discharge ordered by . kb 07:06 Discharged to home ambulatory, with family. ea 07:06 Condition: stable 07:06 Discharge instructions given to patient, Instructed on discharge instructions, follow up and referral plans. Demonstrated understanding of instructions, follow-up care. 07:07 Patient left the ED. ea Signatures: Ashley Ware FNP-C FNP-Jovanni Paulino RN Laure Kaufman RN Raghu Chavez ea, Alice ag3
[2019-10-13 07:46] VITALS: TEMP 98.4
[2019-10-13 07:47] VITALS: BP 161/90; O2SAT 100
== END 2019-10-13 07:07 | disposition home or self-care (01) ==
LOC: ER 05:03
DX: G43.909 Migraine, unspecified, not intractable, without status migrainosus (principal); Z88.5 Allergy status to narcotic agent; Z88.8 Allergy status to other drugs, medicaments and biological substances; Z91.018 Allergy to other foods
CPT/HCPCS: 96374; 96375; 99283; J2765; J7030

== ENCOUNTER 2019-11-12 23:28 | Emergency (ER) | payer SELFPAY ==
--- OUTSIDE RECORDS SUMMARY | 2019-11-12 23:30 | XMS REPORT | Continuity of Care Document ---
:1965 Author Organization [facility] t Address 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 Allergies, Adverse Reactions, Alerts This patient has no known allergies or adverse reactions. Medications This patient has no known medications. Procedures This patient has no known procedures. Encounters Start End Encounter Admission Attending Care Care Encounter Source Date/Time Date/Time Type Type Clinicians Facility Department ID 2019-04-12 2019-04-[address] [facility] [id number] 15:32:56 17:51:00 Rick Luis [id number] [place] [id number] [place] [id number] Results This patient has no known results.
[2019-11-12 23:52] LABS: Absolute Lymphocytes (CBC) 3.3 K/uL (0.7-4.9); Basophils % 1.1 % (0-1.3); Hematocrit 36.3 % (36.0-45.0); Lymphocytes % 34.3 % (15.3-44.8); MPV 8.7 fL (7.6-11.3); RBC Red Blood Cell Count 4.24 M/uL (3.86-4.86)
[2019-11-12 23:53] LABS: Protime INR 1.03
[2019-11-13 00:07] LABS: ALT/SGPT 18 U/L (12-78); AST/SGOT 11 U/L (15-37); Albumin 3.5 g/dL (3.4-5.0); Alkaline Phosphatase 90 U/L (45-117); BUN Blood Urea Nitrogen 20 mg/dL (7-18); Bicarbonate 28 mmol/L (21-32); Bilirubin Direct < 0.1 mg/dL (0-0.2); Bilirubin Total 0.2 mg/dL (0.2-1.0); Glucose Level 97 mg/dL (74-106); Magnesium 2.4 mg/dL (1.8-2.4); NT PRO-BNP 59 pg/mL (<125); Potassium 3.5 mmol/L (3.5-5.1); Protein, Total 7.7 g/dL (6.4-8.2); Sodium Level 143 mmol/L (136-145); Troponin (Emerg Dept Use Only) < 0.02 ng/mL (0.0-0.045)
[2019-11-13] MEDS ORDERED: ONDANSETRON 4 MG/2 ML VIAL ONE (00:10)
[2019-11-13] MEDS ORDERED: FENTANYL CITR 100 MCG/2 ML ONE (00:10)
--- NOTE | 2019-11-13 01:59 | ER ---
Nurse's Notes [facility] Name: Gisselle Fuentes Age: 54 yrs Sex: Female : 1965 Arrival Date: 11/12/2019 Time: 23:31 Bed 14 Private MD: Diagnosis: Chest pain, unspecified Presentation: 11/11 23:32 Chief complaint: Patient states: she has chest pain radiating to the left arm and mg2 nausea started \T\ 2200H tonight. nitro 1 dose SL and aspirin 324 mg enroute but no relief. Coronavirus screen: Client denies travel out of the [place] in the last 14 days. At this time, the client does not indicate any symptoms associated with coronavirus-19. Ebola Screen: No symptoms or risks identified at this time. Initial Sepsis Screen: Does the patient meet any 2 criteria? No. Patient's initial sepsis screen is negative. Does the patient have a suspected source of infection? No. Patient's initial sepsis screen is negative. Risk Assessment: Do you want to hurt yourself or someone else? Patient reports no desire to harm self or others. Onset of symptoms was November 12, 2019 at 22:00. 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 - Social history:: Smoking status: Patient denies any tobacco usage or history of. Patient/guardian denies using alcohol, street drugs, IV drugs. Screenin:37 Abuse screen: Denies threats or abuse. Denies injuries from another. Nutritional mg2 screening: No deficits noted. Tuberculosis screening: No symptoms or risk factors identified. Fall Risk IV access (20 points). Assessment: 23:36 General: Appears in no apparent distress. comfortable, Behavior is calm, cooperative. mg2 Pain: Complains of pain in chest Pain radiates to left arm. Neuro: Level of Consciousness is awake, alert, obeys commands, Oriented to person, place, time, situation. Cardiovascular: Reports chest pain, Capillary refill < 3 seconds Patient's skin is warm and dry. Respiratory: Airway is patent Respiratory effort is even, unlabored, Respiratory pattern is regular, symmetrical. GI: No signs and/or symptoms were reported involving the gastrointestinal system. : No signs and/or symptoms were reported regarding the genitourinary system. EENT: No signs and/or symptoms were reported regarding the EENT system. Derm: Skin is intact, is healthy with good turgor, Skin is pink, warm \T\ dry. normal. Musculoskeletal: Circulation, motion, and sensation intact. Capillary refill < 3 seconds. 11/12 00:45 Reassessment: Patient appears in no apparent distress at this time. Patient and/or mg2 family updated on plan of care and expected duration. Pain level reassessed. Patient is alert, oriented x 3, equal unlabored respirations, skin warm/dry/pink. Vital Signs: 11/11 23:32 BP 149 / 91; Pulse 76; Resp 18; Temp 98.9; Pulse Ox 99% on R/A; Weight 72.57 kg; Height mg2 5 ft. 7 in. (170.18 cm); Pain 10/10; 11/12 00:45 BP 144 / 80; Pulse 63; Resp 18; Pulse Ox 100% on R/A; mg2 02:13 BP 139 / 87; Pulse 64; Resp 18; Temp 98.5; Pulse Ox 100% on R/A; mg2 11/11 23:32 Body Mass Index 25.06 (72.57 kg, 170.18 cm) mg2 ED Course: 11/11 23:31 Patient arrived in ED. mg2 23:33 Robert Ramirez PA is PHCP. jr8 23:33 Roland Corey MD is Attending Physician. jr8 23:35 Triage completed. mg2 23:35 Arm band placed on. mg2 23:36 No provider procedures requiring assistance completed. Maintain EMS IV. Dressing mg2 intact. Good blood return noted. Site clean \T\ dry. Gauge \T\ site: 20 \T\ RAC. 23:37 Patient has correct armband on for positive identification. county assessor on. Pulse mg2 ox on. NIBP on. Door closed. Warm blanket given. 23:41 Jerry Goldberg, RN is Primary Nurse. mg2 23:57 XRAY Chest (1 view) In Process Unspecified. EDTN 11/12 01:58 Hilario Reeves MD is Referral Physician. jr8 02:13 IV discontinued, intact, bleeding controlled, No redness/swelling at site. Pressure mg2 dressing applied. Administered Medications: 00:03 Drug: fentaNYL (PF) 50 mcg Route: IVP; Site: right antecubital; mg2 00:46 Follow up: Response: No adverse reaction; RASS: Alert and Calm (0) mg2 00:03 Drug: Zofran (Ondansetron) 4 mg Route: IVP; Site: right antecubital; mg2 00:45 Follow up: Response: No adverse reaction mg2 Outcome: 01:58 Discharge ordered by . jr8 02:13 Discharged to home ambulatory. mg2 02:13 Condition: good 02:13 Discharge instructions given to patient, Instructed on discharge instructions, follow up and referral plans. Demonstrated understanding of instructions, follow-up care. 02:14 Patient left the ED. mg2 Signatures: Dispatcher [employer] EDTN Robert Ramirez PA PA jr8 Jerry Goldberg, RN RN mg2
--- NOTE | 2019-11-13 01:59 | EDPHYS ---
Physician Documentation [facility] Name: Gisselle Fuentes Age: 54 yrs Sex: Female : 1965 Arrival Date: 11/12/2019 Time: 23:31 Bed 14 Private MD: ED Physician Roland Corey HPI: 11/11 23:57 This 54 yrs old Black Female presents to ER via EMS with complaints of Chest pain. jr8 23:57 The patient or guardian reports chest pain that is located primarily in the anterior jr8 chest wall, left. Onset: acutely, today. The pain radiates to the left arm, left neck. Associated signs and symptoms: The patient has no apparent associated signs or symptoms. The chest pain is described as squeezing. Duration: The patient or guardian reports a single episode, that is still ongoing. Modifying factors: The symptoms are alleviated by nothing. the symptoms are aggravated by nothing. Severity of pain: At its worst the pain was moderate in the emergency department the pain is unchanged. The patient has not experienced similar symptoms in the past. The patient has not recently seen a physician. 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 - Social history:: Smoking status: Patient denies any tobacco usage or history of. Patient/guardian denies using alcohol, street drugs, IV drugs. ROS: 23:57 Eyes: Negative for injury, pain, redness, and discharge, ENT: Negative for injury, jr8 pain, and discharge, Neck: Negative for injury, pain, and swelling, Respiratory: Negative for shortness of breath, cough, wheezing, and pleuritic chest pain, Abdomen/GI: Negative for abdominal pain, nausea, vomiting, diarrhea, and constipation, Back: Negative for injury and pain, MS/Extremity: Negative for injury and deformity, Skin: Negative for injury, rash, and discoloration, Neuro: Negative for headache, weakness, numbness, tingling, and seizure. 23:57 Cardiovascular: Positive for chest pain, Negative for edema, orthopnea, palpitations, paroxysmal nocturnal dyspnea. Exam: 23:57 Eyes: Pupils equal round and reactive to light, extra-ocular motions intact. Lids and jr8 lashes normal. Conjunctiva and sclera are non-icteric and not injected. Cornea within normal limits. Periorbital areas with no swelling, redness, or edema. ENT: Nares patent. No nasal discharge, no septal abnormalities noted. Tympanic membranes are normal and external auditory canals are clear. Oropharynx with no redness, swelling, or masses, exudates, or evidence of obstruction, uvula midline. Mucous membranes moist. Neck: Trachea midline, no thyromegaly or masses palpated, and no cervical lymphadenopathy. Supple, full range of motion without nuchal rigidity, or vertebral point tenderness. No Meningismus. Cardiovascular: Regular rate and rhythm with a normal S1 and S2. No gallops, murmurs, or rubs. Normal PMI, no JVD. No pulse deficits. Respiratory: Lungs have equal breath sounds bilaterally, clear to auscultation and percussion. No rales, rhonchi or wheezes noted. No increased work of breathing, no retractions or nasal flaring. Abdomen/GI: Soft, non-tender, with normal bowel sounds. No distension or tympany. No guarding or rebound. No evidence of tenderness throughout. Back: No spinal tenderness. No costovertebral tenderness. Full range of motion. Skin: Warm, dry with normal turgor. Normal color with no rashes, no lesions, and no evidence of cellulitis. MS/ Extremity: Pulses equal, no cyanosis. Neurovascular intact. Full, normal range of motion. Neuro: Awake and alert, GCS 15, oriented to person, place, time, and situation. Cranial nerves II-XII grossly intact. Motor strength 5/5 in all extremities. Sensory grossly intact. Cerebellar exam normal. Normal gait. 23:57 Chest/axilla: Inspection: normal, Palpation: tenderness, that is moderate, of the anterior aspect of left upper chest, that partially reproduces the patient's complaints. 23:57 ECG was reviewed by the Attending Physician. [facility] Vital Signs: 23:32 BP 149 / 91; Pulse 76; Resp 18; Temp 98.9; Pulse Ox 99% on R/A; Weight 72.57 kg; Height mg2 5 ft. 7 in. (170.18 cm); Pain 10/10; 11/12 00:45 BP 144 / 80; Pulse 63; Resp 18; Pulse Ox 100% on R/A; mg2 02:13 BP 139 / 87; Pulse 64; Resp 18; Temp 98.5; Pulse Ox 100% on R/A; mg2 11/11 23:32 Body Mass Index 25.06 (72.57 kg, 170.18 cm) mg2 MDM: 11/11 23:34 Patient medically screened. jr8 11/12 01:36 The patient was not given aspirin in the Emergency Department. Administered by EMS. jr8 [place] Risk Score: 1 - Recent [<24hrs] Severe Angina, TOTAL SCORE = 1. Data reviewed: vital signs, nurses notes, lab test result(s), EKG, radiologic studies, plain films. Data interpreted: Pulse oximetry: on room air is 100 %. Interpretation: normal. Counseling: I had a detailed discussion with the patient and/or guardian regarding: the historical points, exam findings, and any diagnostic results supporting the discharge/admit diagnosis, lab results, radiology results. Response to treatment: the patient's symptoms have resolved after treatment. 11/11 23:32 Order name: Basic Metabolic Panel; Complete Time: 00:12 mg2 11/11 23:32 Order name: CBC with Diff; Complete Time: 23:56 mg2 11/11 23:32 Order name: LFT's; Complete Time: 00:12 mg2 11/11 23:32 Order name: Magnesium; Complete Time: 00:12 mg2 11/11 23:32 Order name: NT PRO-BNP; Complete Time: 00:12 mg2 11/11 23:32 Order name: PT-INR; Complete Time: 23:59 mg2 11/11 23:32 Order name: Troponin (emerg Dept Use Only); Complete Time: 00:12 mg2 11/11 23:32 Order name: XRAY Chest (1 view); Complete Time: 18:47 mg2 11/11 23:32 Order name: EKG; Complete Time: 23:32 mg2 11/11 23:32 Order name: Cardiac monitoring; Complete Time: 23:32 mg2 11/11 23:32 Order name: EKG - Nurse/Tech; Complete Time: 23:42 mg2 11/12 00:42 Order name: Troponin (emerg Dept Use Only): Draw \T\ 01:10; Complete Time: 18:47 jr8 11/11 23:32 Order name: IV Saline Lock; Complete Time: 23:32 mg2 11/11 23:32 Order name: Labs collected and sent; Complete Time: 23:32 mg2 11/11 23:32 Order name: O2 Per Protocol; Complete Time: 23:32 mg2 11/11 23:32 Order name: O2 Sat Monitoring; Complete Time: 23:32 mg2 EC/17 23:57 Rate is 72 beats/min. Rhythm is regular, Normal Sinus Rhythm. QRS [place] is Normal. [place] jr8 interval is prolonged at 218 msec. QRS interval is normal at 86 msec. QT interval is normal at 431 msec. No Q waves. T waves are Normal. No ST changes noted. Clinical impression: 1st degree heart block. Interpreted by me. Reviewed by me. Administered Medications: 11/12 00:03 Drug: fentaNYL (PF) 50 mcg Route: IVP; Site: right antecubital; mg2 00:46 Follow up: Response: No adverse reaction; RASS: Alert and Calm (0) mg2 00:03 Drug: Zofran (Ondansetron) 4 mg Route: IVP; Site: right antecubital; mg2 00:45 Follow up: Response: No adverse reaction mg2 Disposition: 10:49 Co-signature as Attending Physician, Roland Corey MD I agree with the assessment and jonathan plan of care. Disposition: 11/13/19 01:58 Discharged to Home. Impression: Chest pain, unspecified. - Condition is Stable. - Discharge Instructions: Nonspecific Chest Pain. - Medication Reconciliation Form, Thank You Letter, Antibiotic Education, Prescription Opioid Use form. - Follow up: Hilario Reeves; When: 1 - 2 days; Reason: Recheck today's complaints, Continuance of care, Re-evaluation by your physician. - Problem is new. - Symptoms are resolved. Signatures: Dispatcher [employer] Roland Kohler MD MD cha Roszak, Josh, PA PA jr8 Jerry Goldberg RN RN mg2 Corrections: (The following items were deleted from the chart) 02:14 01:58 11/13/2019 01:58 Discharged to Home. Impression: Chest pain, unspecified. mg2 Condition is Stable. Discharge Instructions: Nonspecific Chest Pain. Forms are Medication Reconciliation Form, Thank You Letter, Antibiotic Education, Prescription Opioid Use. Follow up: Hilario Reeves; When: 1 - 2 days; Reason: Recheck today's complaints, Continuance of care, Re-evaluation by your physician. Problem is new. Symptoms are resolved. jr8
[2019-11-13 02:18] VITALS: O2SAT 100
[2019-11-13 02:20] VITALS: BP 139/87; TEMP 98.5
--- NOTE | 2019-11-13 03:19 | RAD REPORT ---
EXAM DESCRIPTION: RAD - Chest Single View - 11/12/2019 11:57 pm CLINICAL HISTORY: CHEST PAIN Chest pain. COMPARISON: Chest Single View dated 06/12/2019 FINDINGS: Portable technique limits examination quality. The lungs are grossly clear. The heart is normal in size. No displaced fractures. IMPRESSION: No acute intrathoracic process suspected.
--- NOTE | 2019-11-14 07:41 | EKG ---
Test Date: 2019-11-12 Test Time: 23:40:00 Bulldogger: JENNIFER MEASUREMENT RESULTS: Intervals: Rate: 72 KS: 218 QRSD: 86 QT: 394 QTc: 431 [place]: P: 70 KS: 218 QRS: 30 T: 60 INTERPRETIVE STATEMENTS: Sinus rhythm with 1st degree AV block Otherwise normal ECG Compared to ECG 06/12/2019 15:30:16 First degree AV block now present Electronically Signed On 11-14-19 07:39:56 CDT by Hilario Reeves
== END 2019-11-13 02:14 | disposition home or self-care (01) ==
LOC: ER 23:28
DX: R07.9 Chest pain, unspecified (principal); Z88.5 Allergy status to narcotic agent; Z88.8 Allergy status to other drugs, medicaments and biological substances; Z91.018 Allergy to other foods
CPT/HCPCS: 36415; 71045; 80048; 80076; 83735; 83880; 84484; 85025; 85610; 93005; J2405; J3010